=== PATIENT | female | born 1950 | race African-American/Black ===

== ENCOUNTER 2016-12-08 10:54 | Emergency (ER) | payer MEDICARE, MEDICAID ==
[~2016-12-08] VITALS: Ht 154.9 cm; Wt 85.7 kg
[2016-12-08 11:39] VITALS: BP 142/72
== END 2016-12-08 11:54 | disposition home or self-care (01) ==
LOC: ER 10:54
DX: J20.9 Acute bronchitis, unspecified (principal); E04.9 Nontoxic goiter, unspecified

== ENCOUNTER 2017-01-11 12:01 | Emergency (ER) | payer MEDICARE, MEDICAID ==
[~2017-01-11] VITALS: Ht 154.9 cm; Wt 85.7 kg
[2017-01-11 12:14] VITALS: BP 132/72
== END 2017-01-11 12:29 | disposition home or self-care (01) ==
LOC: ER 12:07
DX: J20.9 Acute bronchitis, unspecified (principal)